=== PATIENT | female | born 2000 | race Two or more races ===

== ENCOUNTER 2025-02-01 23:19 | Emergency (ER) | payer MEDICAID, OTHER ==
[~2025-02-01] VITALS: Ht 152.4 cm; Wt 51.5 kg
[2025-02-01] MEDS: ALPRAZolam 0.5 MG TAB PO ONE (23:44)
[2025-02-02] MEDS ORDERED: ALPR0.5T PO (01:01)
--- NOTE | 2025-02-02 01:02 | ED.PDOC ---
History of Present Illness HPI Comments This patient is a very pleasant 25-year-old female who arrives the ED today with complaints of shortness a breath and chest pain concerns that is started earlier today and has occurred intermittently. Patient denies any history of cardiac or pulmonary issues. Patient does have significant stressor life. Patient states her father was recently reported and he was the primary breadwinner. Patient states the family has had a dispersed into relative's house holds and this is caused the patient to have extensive anxiety. Patient denies any fever nausea or vomiting. Patient was tachycardic at arrival. 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 ALUMINUM HYDROXIDE PROCESS OPERATOR History Family History Family History: Reviewed,noncontributory to illness, No family hx of Cancer, No family hx of DM, No family hx of Heart ike, No family hx of HTN, No family hx ofKidney ike, No family hx of Liver ike, No family hx of Lung ike, No family hx of Stroke Social History Smoker: Non-Smoker Alcohol: Denies ETOH Use Drugs: Denies Drug Use Lives In: Home Constitutional: denies: chills, diaphoresis, fatigue, fever, malaise, sweats, weakness, others EENTM: denies: blurred vision, double vision, ear bleeding, ear discharge, ear drainage, ear pain, ear ringing, eye pain, eye redness, hearing loss, mouth pain, mouth swelling, nasal discharge, nose bleeding, nose congestion, nose pain, photophobia, tearing, throat pain, throat swelling, voice changes, others Respiratory: reports: SOB at rest; denies: cough, hemoptysis, orthopnea, shortness of breath, SOB with excertion, stridor, wheezing, others Cardiovascular: reports: chest pain; denies: dizzy spells, diaphoresis, Dyspnea on exertion, edema, irregular heart beat, left arm pain, lightheadedness, palpitations, PND, syncope, others Gastrointestinal: denies: abdomen distended, abdominal pain, blood streaked bowels, constipated, diarrhea, dysphagia, difficulty swallowing, hematemesis, melena, nausea, poor appetite, poor fluid intake, rectal bleeding, rectal pain, vomiting, others Genitourinary: denies: abnormal vagina bleeding, burning, dyspareunia, dysuria, flank pain, frequency, hematuria, incontinence, pain, , vagina discharge, urgency, others Neurological: denies: dizziness, fainting, headache, left sided numbness, left sided weakness, numbness, paresthesia, pre-existing deficit, right sided numbness, right sided weakness, seizure, speech problems, tingling, tremors, weakness, others Musculoskeletal: denies: back pain, gout, joint pain, joint swelling, muscle pain, muscle stiffness, neck pain, others Integumetry: denies: bruises, change in color, change in hair/nails, dryness, laceration, lesions, lumps, rash, wounds, others Allergic/Immunocompromised: denies: Difficulty Healing, Frequent Infections, Hives, Itching, others Hematologic/Lymphatic: denies: anemia, blood clots, easy bleeding, easy bruising, swollen glands, others Endocrine: denies: excessive hunger, excessive sweating, excessive thirst, excessive urination, flushing, intolerance to cold, intolerance to heat, unexplained weight gain, unexplained weight loss, others Psychiatric: reports: anxiety; denies: bipolar disorder, depression, hopeless, panic disorder, schizophrenia, sleepless, suicidal, others Physical Exam General Appearance: Mild Distress (Due to anxiety concerns rather than pain related issues.), Normal HEENT: Normal ENT Inspection, Pharynx Normal, TMs Normal Neck: Full Range of Motion, Non-Tender, Normal, Normal Inspection Respiratory: Chest Non-Tender, Lungs Clear, No Accessory Muscle Use, No Respiratory Distress, Normal Breath Sounds Cardiovascular: No Edema, No JVD, No Murmur, No Gallop, Normal Peripheral Pulses, Tachycardia Breast Exam: Deferred Gastrointestinal: No Organomegaly, Non Tender, No Pulsatile Mass, Normal Bowel Sounds, Soft Genitalia: Deferred Pelvic: Deferred Rectal: Deferred Extremities: No calf tenderness, Normal capillary refill, Normal inspection, Normal range of motion, Non-tender, No pedal edema Neurologic: Alert, No Motor Deficits, Normal Affect, Normal Mood, No Sensory Deficits Cerebellar Function: Normal Reflexes: Normal Skin: Dry, Normal Color, Warm Lymphatic: No Adenopathy Was a procedure done? Was a procedure done?: No Differential Dx Considerations may include: Anxiety, chest pain, shortness a breath X-Ray, Labs, Meds, VS Vital Signs Date Time Temp Pulse Resp B/P (MAP) Pulse Ox O2 Delivery O2 Flow Rate FiO2 02/01/25 23:32 98.4 120 20 125/86 (99) 99 98.4 02/01/25 23:32 20 99 Room Air* 0 21 02/01/25 23:26 121 Current Medications Medications (Trade) Dose Ordered Sig/Lorena Route Start Time Stop Time Status Last Admin Alprazolam (Xanax Tablet) 0.5 mg ONCE ONCE PO 02/01/25 23:45 02/01/25 23:46 DC 02/01/25 23:44 X-Ray, Labs, Meds, VS Comment EKG was remarkable for sinus tachycardia with a rate of 121. Possible right atrial enlargement possible right axis deviation. DC interval of 152 and QT interval of 315. Patient responded well to medication dispensed the ED today. Spent extensive time in conversation with the patient about her current predicament. Advised patient utilize additional tools such as box breathing and exercise to help stave off panic attacks and anxiety events. Advised patient utilize medication only on an as-needed basis. Advised patient that if her symptoms continue, she will have to follow up with the primary care provider for a mental health referral and evaluation. Time of 1ST Reevaluation: 00:59 Reevaluation 1ST: Improved Consultation: PCP, Psychiatry Patient Education/Counseling: Diagnosis, Treatment Family Education/Counseling: Diagnosis, Treatment Departure 1 Departure Time of Disposition: 00:58 Impression: Primary Impression: Anxiety Disposition: HOME / SELF CARE / HOMELESS Condition: Stable Additional Instructions: Advise utilizing medication as needed for symptomatic relief. If symptoms continue for an extended period of, patient may benefit from a mental health referral and evaluation. Advised patient utilize box breathing, exercise and meditation techniques to aid in managing stress concerns. e-Prescriptions Alprazolam (Xanax) 0.5 Mg Tb 1 TAB PO Q8HP PRN, #15 TAB Prov: CONSTANCE BECKWITH PAC 02/02/25 Discharged With: Self, Friend Critical Care Note Critical Care Time?: No Stability Stability form required: No Heart Score Heart Score: Heart Score Response (Comments) Value History Slightly Suspicious 0 EKG Normal 0 Age <45 0 Risk Factors No known risk factors 0 Troponin N/A 0 Total 0 CONSTANCE BECKWITH Feb 02, 2025 01:02
[2025-02-02 01:32] VITALS: BP 105/89; PULSE 95; RESP 18; TEMP 97.8; O2SAT 98
--- NOTE | 2025-02-02 06:46 | ECG ---
[facility] Test Date: 2025-02-01 Test Time: 23:26:14 Pat Name: KAYLIN TAVARES Department: EMERGENCY Room: Gender: F [employer]: YF : 2000 Requested By: CONSTANCE BECKWITH Order Number: [id number] Reading MD: Santy Murphy Measurements Intervals [place] Rate: 121 P: 70 [place]: 152 QRS: 103 QRSD: 84 T: -5 QT: 315 QTc: 447 Interpretive Statements Sinus tachycardia Consider right atrial enlargement Borderline right axis deviation Borderline repolarization abnormality Baseline wander in lead(s) V4,V5 Electronically Signed On 02-02-2025 19:23:12 PDT by Santy Murphy Please click the below link to view image of tracing.
== END 2025-02-02 01:32 | disposition home or self-care (01) ==
LOC: ER 23:19
DX: F41.9 Anxiety disorder, unspecified (principal); R07.9 Chest pain, unspecified
CPT/HCPCS: 93005